=== PATIENT | female | born 1995 ===

== ENCOUNTER 2018-11-28 20:15 | Emergency (ER) | payer MEDICAID ==
[2018-11-28 20:23] VITALS: PULSE 100; RESP 16; TEMP 100
--- NOTE | 2018-11-28 20:40 | C.PDOC ---
History Of Present Illness Patient presents to ED c/o fever/chills, body aches, nonproductive cough, sore throat, runny nose x 2 days. She was seen by physician yesterday, given "antibiotic injection" and Rxs for Ibuprofen and Azithromycin. She denies abdominal pain, nausea/vomiting/diarrhea, rashes, dysuria/hematuria, sick contacts. Time Seen by Provider: 11/28/18 20:27 Chief Complaint (Nursing): Flu-like Symptoms History Per: Patient History/Exam Limitations: no limitations Onset/Duration Of Symptoms: Days (2) Current Symptoms Are (Timing): Still Present Sick Contacts (Context): None Associated Symptoms: Fever, Chills, Sore Throat, Cough, Myalgias, Nasal Congestion Severity: Moderate Past Medical History Reviewed: Historical Data, Nursing Documentation, Vital Signs Vital Signs: Last Vital Signs Temp 100 F H 11/28/18 20:20 Pulse 100 H 11/28/18 20:20 Resp 16 11/28/18 20:20 BP Pulse Ox 128 H 11/28/18 20:20 - Medical History PMH: No Chronic Diseases Family History: States: No Known Family Hx - Social History Hx Alcohol Use: No Hx Substance Use: No - Immunization History Hx Tetanus Toxoid Vaccination: No Hx Influenza Vaccination: No Hx Pneumococcal Vaccination: No Review Of Systems Constitutional: Positive for: Fever, Chills, Malaise ENT: Positive for: Nose Congestion, Throat Pain Cardiovascular: Negative for: Chest Pain, Palpitations Respiratory: Positive for: Cough. Negative for: Shortness of Breath Gastrointestinal: Negative for: Nausea, Vomiting, Abdominal Pain, Diarrhea Genitourinary: Negative for: Dysuria, Hematuria Skin: Negative for: Rash Physical Exam - Physical Exam Appears: Well, Non-toxic, In Acute Distress (mildly uncomfortable ) Skin: Normal Color, Warm, Dry, No Rash Eye(s): bilateral: Normal Inspection Nose: Normal Oral Mucosa: Moist Throat: Erythema (mild ), No Exudate, No Drooling Lymphatic: No Adenopathy Cardiovascular: Rhythm Regular Respiratory: Normal Breath Sounds, No Rales, No Rhonchi, No Wheezing Gastrointestinal/Abdominal: Normal Exam, Bowel Sounds, Soft, No Tenderness Extremity: Normal ROM Neurological/Psych: Oriented x3 ED Course And Treatment O2 Sat by Pulse Oximetry: 98 (RA) Pulse Ox Interpretation: Normal Progress Note: Patient given PO Tamiflu, Tessalon and Tylenol. Patient reassured and viral syndrome symptoms and treatment explained. Rxs for Tamiflu, Tessalon, Sudafed, Tylneol given. Patient instructed to follow up with PMD in 1- 2 days, and to drink plenty of fluids and get rest. She was instructed to return to ED if symptoms worsen. Reevaluation Time: 20:50 Reassessment Condition: Improved Disposition Counseled Patient/Family Regarding: Diagnosis, Need For Followup, Rx Given - Disposition Referrals: Loco Mathew MD [Medical Doctor] - Disposition: HOME/ ROUTINE Disposition Time: 20:50 Condition: STABLE Additional Instructions: FOLLOW UP WITH YOUR DOCTOR IN 1-2 DAYS ALTERNATE IBUPROFEN AND TYLENOL EVERY FOUR HOURS FOR FEVER/PAIN USE OTHER MEDICATIONS DIRECTED DRINK PLENTY OF FLUIDS AND GET REST RETURN TO EMERGEBNCY ROOM IF YOUR SYMPTOMS BECOME WORSE SEGUIR CON BOYD MDICO EN 1-2 MANZANO IBUPROFEN ALTERNO Y TYLENOL CADA CUATRO HORAS PARA LA FIEBRE / DOLOR UTILICE OTROS MEDICAMENTOS RUBY SE DIRIGE CLAUDE MUCHOS FLUIDOS Y DESCANSE REGRESE A EMERGEBNCY ROOM SI MAK SNTOMAS SE HACEN PEOR Prescriptions: Acetaminophen [Tylenol 325mg tab] 650 mg PO Q6 PRN #30 tab PRN Reason: pain/fever Benzonatate [Tessalon Perles] 100 mg PO BID PRN #15 sgl PRN Reason: Cough Oseltamivir Phosphate [Tamiflu] 75 mg PO BID #10 capsule Pseudoephedrine [Sudafed] 60 mg PO Q6 PRN #12 tab PRN Reason: Nasal Congestion Instructions: Viral Syndrome (DC) Forms: [employer] (Greek) Print Language: SWEDISH - Clinical Impression Clinical Impression: Influenza-like illness, Viral syndrome
[2018-11-28 20:50] VITALS: O2SAT 98
== END 2018-11-28 20:50 | disposition home or self-care (01) ==
LOC: C.ER 20:15
DX: J11.1 Influenza due to unidentified influenza virus with other respiratory manifestations (principal)